=== PATIENT | female | born 1965 | race Caucasian/White ===

== ENCOUNTER 2016-07-25 08:09 | Emergency (ER) | payer BC, OTHER ==
[~2016-07-25 08:09] MED LIST: HYDROCHLOROTH12.5 M2 PO; LISINOPRIL10 MG PO; ZITHROMAX Z PA250 MG PO
[2016-07-25] MEDS ORDERED: KETOROLAC10 MG PO (09:52)
== END 2016-07-25 09:59 | disposition home or self-care (01) ==
LOC: ED 08:09
DX: R07.9 Chest pain, unspecified (principal); D86.89 Sarcoidosis of other sites; F43.9 Reaction to severe stress, unspecified; F17.210 Nicotine dependence, cigarettes, uncomplicated

== ENCOUNTER → 2016-07-26 | Outpatient (CLI) | payer OTHER ==
[~2016-07-26] MED LIST changes: +ASPIR LOW81 MG PO; +KETOROLAC10 MG PO; +LISINOPRIL20 MG PO; +METOPROLOL SUC100 M1 PO; +NORCO 325 MG-51 TAB PO
== END ==
LOC: MAMMO 08:03
DX: Z01.419 Encounter for gynecological examination (general) (routine) without abnormal findings (principal); E11.9 Type 2 diabetes mellitus without complications
CPT/HCPCS: G0202

== ENCOUNTER → 2016-08-06 | Outpatient (CLI) | payer BC, OTHER | LOC: LAB 10:46 | DX: N76.0 Acute vaginitis (principal); R65.20 Severe sepsis without septic shock ==

== ENCOUNTER 2016-12-01 12:19 | Emergency (ER) | payer BC, OTHER ==
[~2016-12-01] VITALS: Ht 154.9 cm; Wt 90.9 kg
[~2016-12-01 12:19] MED LIST changes: -ASPIR LOW81 MG PO; -LISINOPRIL20 MG PO; -METOPROLOL SUC100 M1 PO; -NORCO 325 MG-51 TAB PO
[2016-12-01] MEDS ORDERED: LISINOPRIL20 MG PO (12:28)
[2016-12-01] MEDS ORDERED: METOPROLOL SUC100 M1 PO (12:29)
[2016-12-01] MEDS ORDERED: ASPIR LOW81 MG PO (12:29)
[2016-12-01] MEDS ORDERED: NORCO 325 MG-51 TAB PO (14:42)
[2016-12-01 15:10] VITALS: BP 115/62
== END 2016-12-01 15:10 | disposition home or self-care (01) ==
LOC: ED 12:19
DX: S80.01XA Contusion of right knee, initial encounter (principal); S70.01XA Contusion of right hip, initial encounter; W01.198A Fall on same level from slipping, tripping and stumbling with subsequent striking against other object, initial encounter

== ENCOUNTER 2017-01-30 04:24 | Emergency (ER) | payer BC, OTHER ==
[~2017-01-30] VITALS: Ht 154.9 cm; Wt 100.0 kg
[~2017-01-30 04:24] MED LIST changes: +ASPIR LOW81 MG PO; +LISINOPRIL20 MG PO; +METOPROLOL SUC100 M1 PO; +NORCO 325 MG-51 TAB PO
[2017-01-30 05:17] VITALS: BP 147/83
== END 2017-01-30 05:17 | disposition home or self-care (01) ==
LOC: ED 04:24
DX: M54.14 Radiculopathy, thoracic region (principal); R07.9 Chest pain, unspecified

== ENCOUNTER → 2017-08-18 | Outpatient (CLI) | payer BC, OTHER | LOC: LAB 06:48 | DX: I10 Essential (primary) hypertension (principal); Z01.419 Encounter for gynecological examination (general) (routine) without abnormal findings; E66.01 Morbid (severe) obesity due to excess calories ==

== ENCOUNTER → 2017-08-20 | Outpatient (CLI) | payer BC, OTHER | LOC: MAMMO 10:36 → RAD 11:30 | DX: Z12.31 Encounter for screening mammogram for malignant neoplasm of breast (principal) ==

== ENCOUNTER → 2017-08-22 | Outpatient (CLI) | payer BC, OTHER | LOC: CARDLAB 08-21 13:34 → CARDREHAB 10:44 → CARDLAB 10:44 | DX: I10 Essential (primary) hypertension (principal); Z82.49 Family history of ischemic heart disease and other diseases of the circulatory system; E78.2 Mixed hyperlipidemia; R07.9 Chest pain, unspecified; R73.01 Impaired fasting glucose; E66.01 Morbid (severe) obesity due to excess calories; F17.200 Nicotine dependence, unspecified, uncomplicated | CPT/HCPCS: A9500 ==

== ENCOUNTER 2018-02-01 11:53 | Emergency (ER) | payer BC, OTHER ==
[~2018-02-01] VITALS: Ht 154.9 cm; Wt 90.9 kg
[2018-02-01] MEDS ORDERED: GOOD NEIGHBOR200 M1 PO (12:26)
[2018-02-01] MEDS ORDERED: NORCO 325 MG-51 TA1 PO (13:30)
[2018-02-01] MEDS ORDERED: AMOXIL500 M1 PO (13:30)
[2018-02-01 13:44] VITALS: BP 131/89
== END 2018-02-01 13:47 | disposition home or self-care (01) ==
LOC: ED 11:53
DX: K04.7 Periapical abscess without sinus (principal); F17.200 Nicotine dependence, unspecified, uncomplicated

== ENCOUNTER → 2018-03-12 | Outpatient (CLI) | payer BC, OTHER ==
[~2018-03-12] MED LIST changes: +AMOXIL500 M1 PO; +GOOD NEIGHBOR200 M1 PO; +NORCO 325 MG-51 TA1 PO
[2018-03-12 11:48] LABS: EOS # 0.1 (0.04-0.40); EOS % 1.8 % (1.0-5.0); HEMATOCRIT 45.7 % (37.0-47.0); HEMOGLOBIN 15.1 g/dL (12.5-16.0); LYMPH# 1.4 (1.50-4.00); MEAN CELL VOLUME 89 fl (78-100); MEAN CORPUSCULAR HEMOGLOBIN 30 pg (27-31); MEAN CORPUSCULAR HGB CONC 33 g/dL (33-37); MEAN PLATELET VOLUME 11.3 fl (7.4-10.4); MONO # 0.4 (0.20-0.80); NEU # 5.4 (1.40-6.50); PLATELET COUNT 237 K/mm3 (130-400); RED BLOOD COUNT 5.12 M/mm3 (4.10-5.30); RED CELL DISTRIBUTION WIDTH 14.1 % (11.5-14.5); WHITE BLOOD COUNT 7.4 K/mm3 (4.8-10.8)
[2018-03-12 12:00] LABS: ALBUMIN 4.4 g/dL (3.5-5.0); CALCIUM 9.8 mg/dL (8.4-10.2); TOTAL BILIRUBIN 0.5 mg/dL (0.2-1.3); TOTAL PROTEIN 7.9 g/dL (6.3-8.2)
[2018-03-12 12:17] LABS: URINE APPEARANCE CLOUDY; URINE BILIRUBIN NEGATIVE (NEGATIVE); URINE BLOOD NEGATIVE (NEGATIVE); URINE COLOR YELLOW; URINE GLUCOSE NEGATIVE (NEGATIVE); URINE KETONE NEGATIVE (NEGATIVE); URINE LEUKOCYTE ESTERASE 2+ (NEGATIVE); URINE NITRATE NEGATIVE (NEGATIVE); URINE PROTEIN(semi-quant) NEGATIVE (NEGATIVE); URINE UROBILINOGEN NORMAL (NORMAL); URINE WBC >50 /hpf (0-3)
[2018-03-12 12:18] LABS: URINE MUCUS PRESENT (NOT PRESENT)
== END ==
LOC: LAB 10:40 → RAD 10:40
PROVIDERS: Physician Assistant
DX: R10.9 Unspecified abdominal pain (principal)

== ENCOUNTER → 2018-03-17 | Outpatient (CLI) | payer BC, OTHER | LOC: LAB 12:09 | DX: R10.9 Unspecified abdominal pain (principal); N39.0 Urinary tract infection, site not specified ==

== ENCOUNTER → 2018-06-30 | Outpatient (CLI) | payer BC, OTHER ==
[2018-06-30 16:27] LABS: URINE APPEARANCE CLEAR; URINE COLOR YELLOW
[2018-06-30 16:28] LABS: URINE BILIRUBIN NEGATIVE (NEGATIVE); URINE BLOOD NEGATIVE (NEGATIVE); URINE GLUCOSE NEGATIVE (NEGATIVE); URINE KETONE NEGATIVE (NEGATIVE); URINE LEUKOCYTE ESTERASE NEGATIVE (NEGATIVE); URINE NITRATE NEGATIVE (NEGATIVE); URINE PROTEIN(semi-quant) NEGATIVE (NEGATIVE); URINE UROBILINOGEN NORMAL (NORMAL); URINE WBC 0-1 /hpf (0-3)
== END ==
LOC: LAB 15:27
PROVIDERS: Physician Assistant
DX: R30.0 Dysuria (principal)

== ENCOUNTER → 2018-07-16 | Outpatient (CLI) | payer BC, OTHER ==
[~2018-07-16] VITALS: Ht 154.9 cm; Wt 90.9 kg
[~2018-07-16] MED LIST changes: +CYCLOBENZAPRINE10 M1 PO; +LISINOPRIL AND1 TA2 PO; +LOTRISONE CREAM15 G1 TP
[2018-07-16 10:00] VITALS: BP 141/89
[2018-07-16 10:54] LABS: HEMATOCRIT 44.4 % (37.0-47.0); HEMOGLOBIN 14.6 g/dL (12.5-16.0); RED BLOOD COUNT 4.9 M/mm3 (4.10-5.30); RED CELL DISTRIBUTION WIDTH 13.8 % (11.5-14.5); WHITE BLOOD COUNT 7.7 K/mm3 (4.8-10.8)
== END ==
LOC: AMSURD 10:07
PROVIDERS: Nurse Practitioner
DX: M47.814 Spondylosis without myelopathy or radiculopathy, thoracic region (principal); M54.9 Dorsalgia, unspecified; Z87.09 Personal history of other diseases of the respiratory system; Z79.82 Long term (current) use of aspirin; Z79.899 Other long term (current) drug therapy

== ENCOUNTER → 2019-03-02 | Outpatient (CLI) | payer BC, OTHER ==
[2018-07-16 10:00] VITALS: BP 141/89
== END ==
LOC: MAMMO 12:54
DX: Z00.00 Encounter for general adult medical examination without abnormal findings (principal); Z12.31 Encounter for screening mammogram for malignant neoplasm of breast; F41.8 Other specified anxiety disorders; I10 Essential (primary) hypertension; B35.1 Tinea unguium; Z72.0 Tobacco use

== ENCOUNTER → 2019-03-30 | Outpatient (CLI) | payer BC, OTHER ==
[2018-07-16 10:00] VITALS: BP 141/89
[2019-03-30 10:39] LABS: EOS # 0.2 (0.04-0.40); EOS % 2.1 % (1.0-5.0); HEMATOCRIT 44.2 % (37.0-47.0); HEMOGLOBIN 14.7 g/dL (12.5-16.0); LYMPH# 1.8 (1.50-4.00); MEAN CELL VOLUME 89 fl (78-100); MEAN CORPUSCULAR HEMOGLOBIN 30 pg (27-31); MEAN CORPUSCULAR HGB CONC 33 g/dL (33-37); MEAN PLATELET VOLUME 11.1 fl (7.4-10.4); MONO # 0.5 (0.20-0.80); NEU # 5.5 (1.40-6.50); PLATELET COUNT 233 K/mm3 (130-400); RED BLOOD COUNT 4.95 M/mm3 (4.10-5.30)
[2019-03-30 10:48] LABS: ALBUMIN 4.3 g/dL (3.5-5.0); POTASSIUM 3.8 mmol/L (3.5-5.1)
[2019-03-30 10:49] LABS: CALCIUM 9.9 mg/dL (8.3-10.5)
[2019-03-30 10:51] LABS: TOTAL PROTEIN 7.5 g/dL (6.4-8.3)
[2019-03-30 10:52] LABS: TOTAL BILIRUBIN 0.5 mg/dL (0.2-1.2)
[2019-03-30 10:55] LABS: URINE APPEARANCE CLOUDY; URINE BILIRUBIN NEGATIVE (NEGATIVE); URINE BLOOD NEGATIVE (NEGATIVE); URINE COLOR YELLOW; URINE GLUCOSE NEGATIVE (NEGATIVE); URINE KETONE NEGATIVE (NEGATIVE); URINE LEUKOCYTE ESTERASE 1+ (NEGATIVE); URINE NITRATE NEGATIVE (NEGATIVE); URINE PROTEIN(semi-quant) NEGATIVE (NEGATIVE); URINE UROBILINOGEN NORMAL (NORMAL)
[2019-03-30 10:56] LABS: URINE MUCUS PRESENT (NOT PRESENT)
== END ==
LOC: LAB 10:29
PROVIDERS: Physician Assistant
DX: R10.9 Unspecified abdominal pain (principal); R19.4 Change in bowel habit; R11.0 Nausea

== ENCOUNTER → 2019-04-02 | Outpatient (CLI) | payer BC, OTHER ==
[2018-07-16 10:00] VITALS: BP 141/89
== END ==
LOC: RAD 08:55
DX: K80.80 Other cholelithiasis without obstruction (principal)
CPT/HCPCS: Q9967

== ENCOUNTER → 2020-03-15 | Outpatient (CLI) | payer BC, OTHER ==
[2018-07-16 10:00] VITALS: BP 141/89
[2020-03-15 10:05] LABS: EOS # 0.2 (0.04-0.40); EOS % 3.3 % (1.0-5.0); HEMATOCRIT 44.2 % (37.0-47.0); HEMOGLOBIN 14.4 g/dL (12.5-16.0); LYMPH# 1.6 (1.50-4.00); MEAN CELL VOLUME 90 fl (78-100); MEAN CORPUSCULAR HEMOGLOBIN 29 pg (27-31); MEAN CORPUSCULAR HGB CONC 33 g/dL (33-37); MEAN PLATELET VOLUME 10.7 fl (7.4-10.4); MONO # 0.5 (0.20-0.80); NEU # 3.4 (1.40-6.50); PLATELET COUNT 235 K/mm3 (130-400); RED BLOOD COUNT 4.91 M/mm3 (4.10-5.30); WHITE BLOOD COUNT 5.8 K/mm3 (4.8-10.8)
[2020-03-15 10:12] LABS: ALBUMIN 4.2 g/dL (3.5-5.0); POTASSIUM 4.2 mmol/L (3.5-5.1)
[2020-03-15 10:14] LABS: CALCIUM 9.8 mg/dL (8.3-10.5)
[2020-03-15 10:15] LABS: TOTAL PROTEIN 7.3 g/dL (6.4-8.3)
[2020-03-15 10:17] LABS: TOTAL BILIRUBIN 0.3 mg/dL (0.2-1.2)
[2020-03-15 10:44] LABS: URINE APPEARANCE CLEAR; URINE COLOR YELLOW
[2020-03-15 10:45] LABS: URINE BILIRUBIN NEGATIVE (NEGATIVE); URINE BLOOD NEGATIVE (NEGATIVE); URINE GLUCOSE NEGATIVE (NEGATIVE); URINE KETONE NEGATIVE (NEGATIVE); URINE LEUKOCYTE ESTERASE NEGATIVE (NEGATIVE); URINE NITRATE NEGATIVE (NEGATIVE); URINE PROTEIN(semi-quant) NEGATIVE (NEGATIVE); URINE UROBILINOGEN NORMAL (NORMAL)
== END ==
LOC: LAB 09:40
PROVIDERS: Physician Assistant
DX: R10.9 Unspecified abdominal pain (principal); R11.0 Nausea

== ENCOUNTER → 2020-03-22 | Outpatient (CLI) | payer BC, OTHER ==
[2018-07-16 10:00] VITALS: BP 141/89
== END ==
LOC: LAB 11:28
DX: Z01.419 Encounter for gynecological examination (general) (routine) without abnormal findings (principal); N89.8 Other specified noninflammatory disorders of vagina

== ENCOUNTER → 2020-05-02 | Outpatient (CLI) | payer BC, OTHER ==
[2018-07-16 10:00] VITALS: BP 141/89
[2020-05-02 11:36] LABS: HEMATOCRIT 45.8 % (37.0-47.0); HEMOGLOBIN 14.9 g/dL (12.5-16.0); MEAN PLATELET VOLUME 10.5 fl (7.4-10.4); RED BLOOD COUNT 5.06 M/mm3 (4.10-5.30); WHITE BLOOD COUNT 7.5 K/mm3 (4.8-10.8)
[2020-05-02 11:48] LABS: ALBUMIN 4.3 g/dL (3.5-5.0); POTASSIUM 3.9 mmol/L (3.5-5.1)
[2020-05-02 11:49] LABS: CALCIUM 9.6 mg/dL (8.3-10.5)
[2020-05-02 11:50] LABS: TOTAL PROTEIN 7.4 g/dL (6.4-8.3)
[2020-05-02 11:52] LABS: TOTAL BILIRUBIN 0.4 mg/dL (0.2-1.2)
== END ==
LOC: LAB 11:22
PROVIDERS: Family Medicine
DX: R10.9 Unspecified abdominal pain (principal); R11.0 Nausea; R73.01 Impaired fasting glucose
CPT/HCPCS: Q9967

== ENCOUNTER → 2020-11-09 | Outpatient (CLI) | payer BC, OTHER ==
[2018-07-16 10:00] VITALS: BP 141/89
== END ==
LOC: LAB 17:14
DX: E11.9 Type 2 diabetes mellitus without complications (principal)

== ENCOUNTER → 2021-02-21 | Outpatient (CLI) | payer OTHER ==
[2021-02-21 07:42] LABS: BASO # 0.06 (0.02-0.10); EOS # 0.29 (0.04-0.40); EOS % 4.4 % (1.0-5.0); HEMATOCRIT 40.5 % (37.0-47.0); HEMOGLOBIN 13.2 g/dL (12.5-16.0); LYMPH# 1.62 (1.50-4.00); MEAN CELL VOLUME 91 fl (78-100); MEAN CORPUSCULAR HEMOGLOBIN 30 pg (27-31); MEAN CORPUSCULAR HGB CONC 33 g/dL (33-37); MEAN PLATELET VOLUME 10.5 fl (7.4-10.4); MONO # 0.46 (0.20-0.80); NEU # 4.15 (1.40-6.50); PLATELET COUNT 236 K/mm3 (130-400); RED BLOOD COUNT 4.46 M/mm3 (4.10-5.30); WHITE BLOOD COUNT 6.6 K/mm3 (4.8-10.8)
[2021-02-21 08:06] LABS: ALBUMIN 3.8 g/dL (3.5-5.0); POTASSIUM 4.7 mmol/L (3.5-5.1)
[2021-02-21 08:07] LABS: CALCIUM 9.4 mg/dL (8.3-10.5)
[2021-02-21 08:11] LABS: TOTAL BILIRUBIN 0.4 mg/dL (0.2-1.2)
[2021-02-21 10:51] LABS: ERYTHROCYTE SEDIMENTATION RATE 24 mm/hr (0-30)
== END ==
LOC: LAB 07:10
PROVIDERS: Physician Assistant
DX: Z13.29 Encounter for screening for other suspected endocrine disorder (principal); E78.5 Hyperlipidemia, unspecified; M25.50 Pain in unspecified joint; E11.9 Type 2 diabetes mellitus without complications; K90.9 Intestinal malabsorption, unspecified; I10 Essential (primary) hypertension

== ENCOUNTER → 2021-10-18 | Outpatient (CLI) | payer OTHER | LOC: RAD 16:31 | DX: M17.11 Unilateral primary osteoarthritis, right knee (principal); M25.562 Pain in left knee; M25.572 Pain in left ankle and joints of left foot ==

== ENCOUNTER → 2021-12-18 | Outpatient (CLI) | payer OTHER ==
[2021-12-18 09:14] LABS: BASO # 0.04 K/mm3 (0.02-0.10); EOS # 0.15 K/mm3 (0.04-0.40); EOS % 1.7 % (1.0-5.0); HEMOGLOBIN 13.1 g/dL (12.5-16.0); MEAN CELL VOLUME 86 fl (78-100); MEAN CORPUSCULAR HEMOGLOBIN 28 pg (27-31); MEAN CORPUSCULAR HGB CONC 33 g/dL (33-37); MEAN PLATELET VOLUME 10.5 fl (7.4-10.4); MONO # 0.55 K/mm3 (0.20-0.80); NEU # 6.35 K/mm3 (1.40-6.50); PLATELET COUNT 269 K/mm3 (130-400); RED BLOOD COUNT 4.68 M/mm3 (4.10-5.30); WHITE BLOOD COUNT 8.7 K/mm3 (4.8-10.8)
[2021-12-18 09:19] LABS: ALBUMIN 3.9 g/dL (3.5-5.0); POTASSIUM 3.9 mmol/L (3.5-5.1)
[2021-12-18 09:20] LABS: CALCIUM 9.6 mg/dL (8.3-10.5)
[2021-12-18 09:23] LABS: TOTAL BILIRUBIN 0.5 mg/dL (0.2-1.2)
[2021-12-18 09:44] LABS: D-DIMER 2.28 mg/L FEU (0.15-0.50)
== END ==
LOC: LAB 08:49
PROVIDERS: Nurse Practitioner Family
DX: M19.071 Primary osteoarthritis, right ankle and foot (principal)

== ENCOUNTER 2022-01-04 23:03 | Emergency (ER) | payer OTHER ==
[~2022-01-04] VITALS: Ht 152.4 cm; Wt 100.0 kg
[2022-01-04] MEDS ORDERED: LIPITOR20 M2 PO (23:17)
[2022-01-04] MEDS ORDERED: VOLTAREN ARTHRI20 GM TP (23:18)
[2022-01-05 00:20] LABS: BASO # 0.04 K/mm3 (0.02-0.10); EOS # 0.12 K/mm3 (0.04-0.40); EOS % 1.7 % (1.0-5.0); HEMATOCRIT 38.9 % (37.0-47.0); HEMOGLOBIN 12.5 g/dL (12.5-16.0); LYMPH# 1.36 K/mm3 (1.50-4.00); MEAN CELL VOLUME 86 fl (78-100); MEAN CORPUSCULAR HEMOGLOBIN 28 pg (27-31); MEAN CORPUSCULAR HGB CONC 32 g/dL (33-37); MEAN PLATELET VOLUME 9.9 fl (7.4-10.4); MONO # 0.59 K/mm3 (0.20-0.80); NEU # 4.94 K/mm3 (1.40-6.50); PLATELET COUNT 334 K/mm3 (130-400); RED CELL DISTRIBUTION WIDTH 14.9 % (11.5-14.5); WHITE BLOOD COUNT 7.1 K/mm3 (4.8-10.8)
[2022-01-05 00:32] LABS: POTASSIUM 4.2 mmol/L (3.5-5.1); SODIUM 136 mmol/L (136-145)
[2022-01-05 00:33] LABS: CALCIUM 9.5 mg/dL (8.3-10.5)
[2022-01-05 00:34] LABS: GLUCOSE 314 mg/dL (65-105)
[2022-01-05 00:35] LABS: CARBON DIOXIDE 22 mmol/L (22-29)
[2022-01-05 00:47] LABS: TROPONIN-I < 0.030 ng/mL (<0.030)
[2022-01-05 03:23] VITALS: BP 149/90
== END 2022-01-05 03:23 | disposition home or self-care (01) ==
LOC: ED 23:03
PROVIDERS: Family Medicine
DX: R00.2 Palpitations (principal); E86.0 Dehydration; E11.65 Type 2 diabetes mellitus with hyperglycemia; F17.210 Nicotine dependence, cigarettes, uncomplicated
CPT/HCPCS: J1815; J7030

== ENCOUNTER → 2022-05-14 | Outpatient (CLI) | payer OTHER ==
[~2022-05-14] MED LIST changes: +LIPITOR20 M2 PO; +VOLTAREN ARTHRI20 GM TP
[2022-05-14 08:09] LABS: ALBUMIN 3.7 g/dL (3.5-5.0); POTASSIUM 4.3 mmol/L (3.5-5.1)
[2022-05-14 08:10] LABS: CALCIUM 9.6 mg/dL (8.3-10.5)
[2022-05-14 08:11] LABS: TOTAL PROTEIN 6.9 g/dL (6.4-8.3)
[2022-05-14 08:13] LABS: TOTAL BILIRUBIN 0.4 mg/dL (0.2-1.2)
== END ==
LOC: LAB 07:15
PROVIDERS: Nurse Practitioner Family
DX: Z13.29 Encounter for screening for other suspected endocrine disorder (principal); K90.9 Intestinal malabsorption, unspecified; E11.9 Type 2 diabetes mellitus without complications

== ENCOUNTER → 2023-04-02 | Outpatient (CLI) | payer OTHER ==
[~2023-04-02] MED LIST changes: +PERCOCET 325 MG1 TA2 PO
== END ==
LOC: MAMMO 15:05
DX: Z12.31 Encounter for screening mammogram for malignant neoplasm of breast (principal)

== ENCOUNTER → 2024-05-13 | Outpatient (CLI) | payer OTHER | LOC: RAD 11:58 | DX: M47.817 Spondylosis without myelopathy or radiculopathy, lumbosacral region (principal); M43.17 Spondylolisthesis, lumbosacral region ==

== ENCOUNTER → 2024-09-08 | Outpatient (CLI) | payer OTHER | LOC: MAMMO 15:22 | DX: Z12.31 Encounter for screening mammogram for malignant neoplasm of breast (principal) ==

== ENCOUNTER → 2024-11-05 | Outpatient (CLI) | payer OTHER ==
[2024-11-05 08:50] LABS: BASO # 0.04 K/mm3 (0.02-0.10); EOS # 0.21 K/mm3 (0.04-0.40); EOS % 2.6 % (1.0-5.0); HEMATOCRIT 40.9 % (37.0-47.0); HEMOGLOBIN 13.3 g/dL (12.5-16.0); LYMPH# 1.88 K/mm3 (1.50-4.00); MEAN CELL VOLUME 90 fl (78-100); MEAN CORPUSCULAR HEMOGLOBIN 29 pg (27-31); MEAN CORPUSCULAR HGB CONC 33 g/dL (33-37); MEAN PLATELET VOLUME 10.6 fl (7.4-10.4); NEU # 5.36 K/mm3 (1.40-6.50); PLATELET COUNT 281 K/mm3 (130-400); RED BLOOD COUNT 4.55 M/mm3 (4.10-5.30); RED CELL DISTRIBUTION WIDTH 13.2 % (11.5-14.5); WHITE BLOOD COUNT 8.1 K/mm3 (4.8-10.8)
[2024-11-05 08:56] LABS: ALBUMIN 3.8 g/dL (3.5-5.0)
[2024-11-05 08:57] LABS: CALCIUM 9.1 mg/dL (8.3-10.5)
[2024-11-05 08:59] LABS: TOTAL PROTEIN 6.9 g/dL (6.4-8.3)
[2024-11-05 09:00] LABS: TOTAL BILIRUBIN 0.5 mg/dL (0.2-1.2)
== END ==
LOC: LAB 08:31
PROVIDERS: Physician Assistant
DX: Z13.29 Encounter for screening for other suspected endocrine disorder (principal); I10 Essential (primary) hypertension; E78.5 Hyperlipidemia, unspecified; E11.9 Type 2 diabetes mellitus without complications; K90.9 Intestinal malabsorption, unspecified; B35.1 Tinea unguium